=== PATIENT | female | born 1940 | race Caucasian/White ===

== ENCOUNTER → 2021-04-15 | Outpatient (CLI) | payer MEDICARE ==
[2021-04-16 10:11] LABS: APTT 54 Sec(s) (<43); APTT 1:1 Mix 48 Sec(s) (<43); DRVVT 1:1 Mix 91 Sec(s) (<44); DRVVT Confirmation Positive (Negative); Dilute Russell Viper Venom 121 Sec(s) (<44); Hexagonal Phase Neutralization Negative (Negative)
== END | disposition home or self-care (01) ==
LOC: LABWHC1 09:40
PROVIDERS: ATTEND Physician Assistant Medical
DX: Z09 Encounter for follow-up examination after completed treatment for conditions other than malignant neoplasm (principal); Z86.718 Personal history of other venous thrombosis and embolism
CPT/HCPCS: 36415; 85613; 85730

== ENCOUNTER 2021-10-11 13:31 | Emergency (ER) | payer MEDICARE ==
[2021-10-11 14:22] VITALS: RESP 18; TEMP 98.1
--- NOTE | 2021-10-11 16:31 | ED ---
General Adult HPI - General Chief complaint: Extremity Problem,Nontraumatic Stated complaint: swollen foot Time Seen by Provider: 10/11/21 16:00 Source: patient, RN notes reviewed Mode of arrival: ambulatory Limitations: no limitations - History of Present Illness Initial comments: Patient is a pleasant 81-year-old female presenting to the emergency Department with right leg swelling. Onset of symptoms was just a couple days ago. Patient denies any discomfort. Patient does have history of having his blood clot in her legs and is on Xarelto 20 mg daily. No chest pain. No dyspnea. No discomfort of her leg. No color change. - Related Data Allergies Allergy/AdvReac Type Severity Reaction Status Date / Time No Known Allergies Allergy Verified 10/11/21 14:18 Review of Systems ROS Statement: Those systems with pertinent positive or pertinent negative responses have been documented in the HPI. ROS Other: All systems not noted in ROS Statement are negative. Constitutional: Denies: fever Eyes: Denies: eye pain ENT: Denies: ear pain Respiratory: Denies: cough Cardiovascular: Denies: chest pain Endocrine: Denies: fatigue Gastrointestinal: Denies: nausea Genitourinary: Denies: dysuria Musculoskeletal: Reports: as per HPI. Denies: back pain Skin: Denies: rash Neurological: Denies: weakness Past Medical History Past Medical History: Deep Vein Thrombosis (DVT) History of Any Multi-Drug Resistant Organisms: None Reported Past Psychological History: No Psychological Hx Reported Smoking Status: Never smoker Past Alcohol Use History: None Reported Past Drug Use History: None Reported General Exam Limitations: no limitations General appearance: alert, in no apparent distress Head exam: Present: normocephalic Eye exam: Present: normal appearance Neck exam: Present: normal inspection Respiratory exam: Present: normal lung sounds bilaterally Cardiovascular Exam: Present: regular rate, normal rhythm Expanded Peripheral pulses: 2+: Posterior Tibialis (R), Posterior Tibialis (L), Dorsalis Pedis (R), Dorsalis Pedis (L) GI/Abdominal exam: Present: soft. Absent: tenderness Extremities exam: Present: pedal edema (+1 on the right). Absent: calf tenderness Neurological exam: Present: alert. Absent: motor sensory deficit Psychiatric exam: Present: normal affect, normal mood Skin exam: Present: normal color. Absent: rash, erythema Course Vital Signs 10/11/21 14:18 Temperature 98.1 F Pulse Rate 66 Respiratory 18 Rate Blood Pressure 183/86 O2 Sat by Pulse 97 Oximetry EKG Findings - EKG Comments: EKG Findings:: Sinus rhythm 363. For screening AV block HI 216. QRS 90. QT 424. QTC 433. Left axis. Normal QRS. No acute ST change. Medical Decision Making - Medical Decision Making Patient reevaluated and updated. Case was discussed with Dr. Degroot who did not feel need for change with anticoagulation. He recommends compression stockings. Patient updated. - Radiology Data Radiology results: report reviewed (Ultrasound shows chronic DVT.), image reviewed (X-ray shows degenerative changes. No fracture.) Disposition Clinical Impression: Chronic deep vein thrombosis (DVT) Disposition: HOME SELF-CARE Condition: Stable Instructions (If sedation given, give patient instructions): Leg Edema (ED) Additional Instructions: Please follow-up with primary care physician in the next day or 2 for recheck. Return for chest pain or difficulty breathing, increased leg swelling, leg pain, fever, worsening symptoms or other concerns. Use compression stockings for leg Is patient prescribed a controlled substance at d/c from ED?: No Referrals: Rhea Cardenas DO [Primary Care Provider] - 1-2 days Time of Disposition: 19:22
--- NOTE | 2021-10-11 17:20 | US ---
EXAMINATION TYPE: US venous doppler duplex LE RT DATE OF EXAM: 10/11/2021 5:08 PM COMPARISON: NONE CLINICAL HISTORY: swelling. Patient states history of DVT right leg and is on Xeralto. SIDE PERFORMED: Right TECHNIQUE: The lower extremity deep venous system is examined utilizing real time linear array sonog sarah with graded compression, doppler sonography and color-flow sonography. VESSELS IMAGED: Common Femoral Vein Deep Femoral Vein Greater Saphenous Vein * Femoral Vein Popliteal Vein Small Saphenous Vein * Proximal Calf Veins (* superficial vessels) Right Leg: Positive for DVT. Within the pop vein there are internal echoes with flow going around. T he vessel is partially compressible. Appears as non occluding thrombus of indeterminate age. IMPRESSION: There is evidence for chronic deep vein thrombosis in the popliteal vein.
--- NOTE | 2021-10-11 19:12 | XR ---
EXAMINATION TYPE: XR foot complete RT DATE OF EXAM: 10/11/2021 COMPARISON: NONE HISTORY: Foot pain and swelling TECHNIQUE: 3 views FINDINGS: There is narrowing and spurring at the first MP joint. There is large plantar calcaneal spu r. There is small Achilles calcaneal spur. I see no fracture. Metatarsals are intact. IMPRESSION: Degenerative hypertrophic changes. No fracture. No evidence of osteomyelitis.
[2021-10-11 19:50] VITALS: BP 167/92; PULSE 61
== END 2021-10-11 19:51 | disposition home or self-care (01) ==
LOC: EC 13:31
DX: I82.531 Chronic embolism and thrombosis of right popliteal vein (principal)
CPT/HCPCS: 93005; 99284